=== PATIENT | male | born 1995 | race Caucasian/White ===

== ENCOUNTER → 2018-02-02 05:06 | Emergency (ER) | payer SELFPAY ==
[2018-02-02 05:27] VITALS: BP 122/69
--- NOTE | 2018-02-02 05:31 | ED ---
HPI Cardiac - HPI Summary HPI Summary: Pt is 23 y/o M who presents to ED c/o dysrhythmia. The first time he felt this sensation was 2 weeks ago. He visited PCP who said it was probably due to stress and the symptom went away. Last night the dysrhythmia came back worse and tonight it was even more uncomfortable prompting him to visit the ED. Denies SOB. - History of Current Complaint Chief Complaint: EDDysrhythmPalp Stated Complaint: IRREGULAR HR/CHEST TIGHTNESS Time Seen by Provider: 02/02/18 05:25 Hx Obtained From: Patient Onset/Duration: Started Hours Ago, Resolved Timing: Intermittent Pain Intensity: 0 Pain Scale Used: 0-10 Numeric Character: Irregular Aggravating Factor(s): Nothing Alleviating Factor(s): Nothing Associated Signs and Symptoms: Positive: Other: - dysrhythmia. Negative: Shortness of Breath - Allergy/Home Medications Allergies/Adverse Reactions: Allergies Allergy/AdvReac Type Severity Reaction Status Date / Time No Known Allergies Allergy Verified 02/02/18 05:11 Home Medications: Home Medications NK [No Home Medications Reported] 02/02/18 [History Confirmed 02/02/18] PMH/Surg Hx/FS Hx/Imm Hx Endocrine/Hematology History: Denies: Hx Anticoagulant Therapy Sensory History: Denies: Hx Deafness Infectious Disease History: No Infectious Disease History: Denies: Traveled Outside the [place] in Last 30 Days - Family History Known Family History: Positive: Other - Mother has Afib - Social History Alcohol Use: Weekly Substance Use Type: Reports: None Smoking Status (MU): Never Smoked Tobacco Review of Systems Positive: Other - dysrhythmia Negative: Shortness Of Breath All Other Systems Reviewed And Are Negative: Yes Physical Exam - Summary Physical Exam Summary: Appearance: Well-appearing, Well-nourished, lying in bed comfortably Skin: Warm, dry, no obvious rash Eyes: sclera anicteric, no conjunctival pallor ENT: mucous membranes moist, pharynx appears normal Neck: Supple, nontender Respiratory: Clear to auscultation, no signs of respiratory distress Cardiovascular: Normal S1, S2. No murmurs. Normal distal pulses in tibial and radial bilaterally. Abdomen: Deferred Musculoskeletal: Normal, Strength/ROM Intact Neurological: A&Ox3, awake and alert, mentation is normal, speech is fluent and appropriate Psychiatric: affect is normal, does not appear anxious or depressed Triage Information Reviewed: Yes Vital Signs On Initial Exam: Initial Vitals Temp Pulse Resp BP Pulse Ox 98.5 F 88 20 116/75 97 02/02/18 05:09 02/02/18 05:09 02/02/18 05:09 02/02/18 05:09 02/02/18 05:09 Vital Signs Reviewed: Yes Diagnostics - Vital Signs Vital Signs Temp Pulse Resp BP Pulse Ox 02/02/18 05:20 76 16 122/69 97 02/02/18 05:09 98.5 F 88 20 116/75 97 - Laboratory Lab Statement: Any lab studies that have been ordered have been reviewed, and results considered in the medical decision making process. - EKG 05:14 Cardiac Rate: NL - 76 bpm EKG Rhythm: Sinus Rhythm EKG Interpretation: PAC's otherwise normal Disposition - Course Course Of Treatment: During the course of the interview PACs were noted fairly frequently on the monitor. The patient was aware of these. I explained the benign nature of PACs and that they are likely due to stress or some other environmental stimulus. - Diagnoses Provider Diagnoses: Premature atrial contractions Discharge - Sign-Out/Discharge Documenting (check all that apply): Patient Departure - Discharge Plan Condition: Good Disposition: HOME Patient Education Materials: Premature Atrial Contractions (ED) Forms: *School Release Referrals: Maynor Vasquez MD [Medical Doctor] - Additional Instructions: If your PACs continue to cause you problems, a vp digital marketing can evaluate you further and discuss medication. Most of the time, however, the problem resolves on its own over a few weeks. - Billing Disposition and Condition Condition: GOOD Disposition: Home - Attestation Statements Document Initiated by Scribe: Yes Documenting Scribe: Joanna Lam Provider For Whom Mckenna is Documenting (Include Credential): Jett Wharton MD Scribe Attestation: Joanna Diaz scribed for Jett Wharton MD on 02/03/18 at 0412. Scribe Documentation Reviewed: Yes Provider Attestation: The documentation as recorded by the Joanna mcclellan accurately reflects the service I personally performed and the decisions made by me, Jett Wharton MD
== END | disposition home or self-care (01) ==
LOC: ED 05:06
DX: I49.1 Atrial premature depolarization (principal)
CPT/HCPCS: 93005; 99282